=== PATIENT | male | born 2000 | race Two or more races ===

== ENCOUNTER 2023-06-02 12:33 | Emergency (ER) | payer MEDICAID, OTHER ==
[~2023-06-02] VITALS: Ht 152.4 cm; Wt 90.0 kg
[2023-06-02 15:43] VITALS: BP 131/80; PULSE 82; RESP 15; TEMP 97.6; O2SAT 98
[2023-06-02] MEDS ORDERED: IBUPROFEN 800 MG TAB PO ONE (16:00)
[2023-06-02] MEDS ORDERED: IBUP1TAB5 PO (16:00)
== END 2023-06-02 15:52 | disposition home or self-care (01) ==
LOC: ER 12:33
DX: S62.001A Unspecified fracture of navicular [scaphoid] bone of right wrist, initial encounter for closed fracture (principal); W18.39XA Other fall on same level, initial encounter; Y93.67 Activity, basketball; Y92.89 Other specified places as the place of occurrence of the external cause; Y99.8 Other external cause status
CPT/HCPCS: 29125; 73100

== ENCOUNTER 2024-02-20 02:18 | Emergency (ER) | payer MEDICAID ==
[~2024-02-20] VITALS: Ht 177.8 cm; Wt 91.8 kg
[~2024-02-20 02:18] MED LIST: IBUP1TAB5 PO
[2024-02-20 02:25] VITALS: BP 119/69; PULSE 101; RESP 18; O2SAT 97
== END 2024-02-20 05:31 | disposition left against medical advice (07) ==
LOC: ER 02:18
DX: S60.414A Abrasion of right ring finger, initial encounter (principal); Z53.21 Procedure and treatment not carried out due to patient leaving prior to being seen by health care provider; W01.0XXA Fall on same level from slipping, tripping and stumbling without subsequent striking against object, initial encounter; Y93.89 Activity, other specified; Y92.89 Other specified places as the place of occurrence of the external cause; Y99.8 Other external cause status